=== PATIENT | male | born 1960 | race Two or more races ===

== ENCOUNTER 2023-06-02 19:14 | Emergency (ER) | payer OTHER ==
[~2023-06-02] VITALS: Ht 177.8 cm; Wt 79.6 kg
[2023-06-02 19:29] VITALS: BP 91/72; PULSE 111; RESP 18; TEMP 98
[2023-06-02 23:42] VITALS: O2SAT 98
[2023-06-02] MEDS ORDERED: IBUP1TAB5 PO (23:44)
== END 2023-06-03 05:21 | disposition home or self-care (01) ==
LOC: ER 19:18
DX: M79.604 Pain in right leg (principal); Z79.1 Long term (current) use of non-steroidal anti-inflammatories (NSAID)
CPT/HCPCS: 73590

== ENCOUNTER 2023-07-21 14:07 | Inpatient (IN) | payer OTHER ==
[~2023-07-21] VITALS: Ht 177.8 cm; Wt 91.0 kg
[~2023-07-21 14:07] MED LIST: IBUP1TAB5 PO
[2023-07-21] MEDS ORDERED: ASPirin-EC 81 mg tab PO ONE (14:45)
[2023-07-21] MEDS ORDERED: NITROGLYCERIN 2% OINT 1GM PKG TD ONE (14:45)
[2023-07-21 15:06] LABS: Basophils # (auto) 0.1 10 ^3/uL (0-0.2); Monocytes # (auto) 2.1 10 ^3/uL (0-1.3)
[2023-07-21 15:08] LABS: Basophils % (auto) 0.4 % (0.0-2.0); Eosinophils # (auto) 0.2 10 ^3/uL (0-0.8); Eosinophils % (auto) 0.7 % (0.0-7.0); Hematocrit 54.2 % (41.0-53.0); Hemoglobin 17.9 g/dL (13.5-17.5); Lymphocytes # (auto) 4.7 10 ^3/uL (0.4-5.4); Lymphocytes % (auto) 19.2 % (10.0-50.0); Mean Corpuscular Hemoglobin 30.5 pg (28.0-32.0); Mean Corpuscular Hgb Conc. 33.1 g/dL (32.0-36.0); Mean Corpuscular Volume 92.3 fL (80.0-100.0); Monocytes % (auto) 8.6 % (0.0-12.0); Neutrophils # (auto) 17.3 10 ^3/uL (1.6-8.6); Neutrophils % (auto) 71.1 % (37.0-80.0); Red Blood Cells 5.87 10^6/uL (4.5-5.90); Red Cell Distribution Width 14.4 % (11.8-14.3); White Blood Cell 24.4 10^3/uL (4.4-10.8)
[2023-07-21] MEDS ORDERED: VANCOMYCIN 1GM/250ML 250 ML IV ONE (15:45)
[2023-07-21] MEDS ORDERED: SODIUM CHLORIDE 0.9% 2,000 ML IV ONE (15:45)
[2023-07-21 15:49] LABS: Alanine Aminotransferase 68 U/L (7-40); Alkaline Phosphatase 88 U/L (46-116); Calcium 8.8 mg/dL (8.7-10.4)
[2023-07-21 15:50] LABS: Albumin 3.8 g/dL (3.2-4.8); Anion Gap 10 (5-15); Aspartate Aminotransferase 41 U/L (13-40); BUN/Creatinine Ratio 8.8 (10.0-20.0); Bilirubin, Total 0.9 mg/dL (0.2-1.0); Blood Urea Nitrogen 9 mg/dL (9-23); Carbon Dioxide 19 mmol/L (20-30); Chloride 104 mmol/L (98-107); Glucose 134 mg/dL (74-106); Lipase 46 U/L (12-53); Potassium 3.6 mmol/L (3.5-5.1); Sodium 133 mmol/L (136-145)
[2023-07-21] MEDS ORDERED: PIPERACILLIN-TAZO 4.5GM 100 ML IV ONE (16:00)
[2023-07-21 16:30] LABS: INR 1.09 (0.9-1.15); Prothrombin Time 11.4 sec (9.3-11.8)
[2023-07-21] MEDS ORDERED: NITROGLYCERIN 0.4 MG SL TAB SL PRN (16:30)
[2023-07-21] MEDS ORDERED: ENOXAPARIN SOD 100 MG/1 ML SYRINGE SC ONE (16:30)
[2023-07-21] MEDS ORDERED: ACETAMINOPHEN 325 MG TAB PO PRN (16:30)
[2023-07-21] MEDS ORDERED: VANCOMYCIN PER PHARMACY 0 MG IV SCH (16:30)
[2023-07-21 16:48] LABS: Lactic Acid w/Reflex 2.4 mmol/L (0.4-2.0)
[2023-07-21] MEDS: HYDROcodone-ACET 5/325MG TAB PO PRN ×2 (16:56→22:18)
[2023-07-21] MEDS: SODIUM CHLORIDE 0.9% 1,000 ML IV SCH (16:57)
[2023-07-21] MEDS ORDERED: IOHEXOL 350 MG/ML 100ML IJ ONE (16:58)
[2023-07-21 17:06] VITALS: PULSE 109; RESP 17; O2SAT 90
[2023-07-21 18:16] LABS: Triglycerides 62 mg/dL (< 150)
[2023-07-21 18:17] LABS: LDL Cholesterol 78 mg/dL (< 100)
[2023-07-21 18:18] LABS: Cholesterol 146 mg/dL (< 200); HDL Cholesterol 50 mg/dL (40-59)
[2023-07-21] MEDS ORDERED: MORPHINE SULFATE INJ 2 MG/ml SYRG IV PRN (19:00)
[2023-07-21] MEDS: MORPHINE SULFATE INJ 2 MG/ml SYRG IV PRN (19:11)
[2023-07-21 19:30] VITALS: PULSE 122; RESP 17; O2SAT 94
[2023-07-21] MEDS: PIPERACILLIN-TAZOB 3.375GM 100 ML IV SCH (22:18)
[2023-07-21] MEDS: ATORVASTATIN 20 MG TAB PO SCH (22:18)
[2023-07-21 22:28] LABS: Urine Bacteria NONE SEEN /hpf (None Seen); Urine Blood Negative /uL (Negative); Urine Clarity Clear (Clear); Urine Color Yellow (Yellow); Urine Protein, UAD TRACE (Negative); Urine Specific Gravity 1.044 (1.001-1.035); Urine WBC 1 /hpf (0 - 3)
[2023-07-21] MEDS ORDERED: KETOROLAC TROMETH 30 MG/ML 1ML VIAL IV ONE (22:30)
[2023-07-21 22:35] LABS: Amphetamine Screen, Urine Pos (NEGATIVE); Barbiturate Scree,Urine Neg (NEGATIVE); Benzodiazephine Screen, Urine Neg (NEGATIVE); Cannabinoid Screen, Urine Pos (NEGATIVE); Cocaine Screen, Urine Neg (NEGATIVE); Opiate Scree,Urine Pos (NEGATIVE); Phencyclidine Screen, Urine Neg (NEGATIVE)
[2023-07-21] MEDS ORDERED: CLINDAMYCIN 300MG IV 50 ML IV ONE (23:15)
[2023-07-21] MEDS ORDERED: HYDROmorphone HCL 2 MG/ML VL/or syr IV ONE (23:15)
[2023-07-21] MEDS ORDERED: CLINDAMYCIN 900MG IV 50 ML IV ONE (23:15)
[2023-07-21 23:43] LABS: INR 1.22 (0.9-1.15); Partial Thromboplastin Time 29.5 SEC (24.5-34.5); Prothrombin Time 12.6 sec (9.3-11.8)
[2023-07-22] VITALS (7 sets, daily range): BP systolic 99–111; BP diastolic 63–76; PULSE 67–115; RESP 17–22; TEMP 97.6–98.1; O2SAT 93–99
[2023-07-22 01:25] LABS: Chloride 103 mmol/L (98-107); Sodium 131 mmol/L (136-145)
[2023-07-22 01:26] LABS: Anion Gap 7 (5-15); Basophils # (auto) 0.1 10 ^3/uL (0-0.2); Calcium 7.5 mg/dL (8.7-10.4); Carbon Dioxide 21 mmol/L (20-30)
[2023-07-22 01:27] LABS: Basophils % (auto) 0.5 % (0.0-2.0); Eosinophils # (auto) 0.1 10 ^3/uL (0-0.8); Eosinophils % (auto) 0.4 % (0.0-7.0); Hematocrit 55.3 % (41.0-53.0); Hemoglobin 18.5 g/dL (13.5-17.5); Lymphocytes # (auto) 3.3 10 ^3/uL (0.4-5.4); Lymphocytes % (auto) 14.3 % (10.0-50.0); Mean Corpuscular Hemoglobin 30.6 pg (28.0-32.0); Mean Corpuscular Hgb Conc. 33.5 g/dL (32.0-36.0); Mean Corpuscular Volume 91.4 fL (80.0-100.0); Monocytes # (auto) 1.8 10 ^3/uL (0-1.3); Neutrophils # (auto) 17.7 10 ^3/uL (1.6-8.6); Neutrophils % (auto) 76.8 % (37.0-80.0); Red Blood Cells 6.05 10^6/uL (4.5-5.90); Red Cell Distribution Width 13.9 % (11.8-14.3)
[2023-07-22 01:31] LABS: Blood Urea Nitrogen 9 mg/dL (9-23); Glucose 144 mg/dL (74-106)
[2023-07-22] MEDS ORDERED: PROPOFOL 10 MG/ML 20 ML IV ONE (01:31)
[2023-07-22] MEDS ORDERED: fentaNYL CITRATE 100 MCG/2 ML VL ONE (01:31)
[2023-07-22] MEDS ORDERED: ONDANSETRON HCL 4 MG/2 ML VIAL ONE (01:45)
[2023-07-22] MEDS ORDERED: ePHEDrine SULFATE 50 MG/ML AMP ONE (01:45)
[2023-07-22] MEDS ORDERED: PHENYLEPHRINE HCL 10 MG/ML VL ONE (02:33)
[2023-07-22] MEDS ORDERED: MEPERIDINE HCL (25 MG/ML) 1ML VIAL IV PRN (03:00)
[2023-07-22] MEDS ORDERED: HYDROmorphone HCL 2 MG/ML VL/or syr IV PRN (03:00)
[2023-07-22] MEDS ORDERED: ONDANSETRON HCL 4 MG/2 ML VIAL IV PRN ×2 (03:00)
[2023-07-22] MEDS: VANCOMYCIN 750mg/250ml 250 ML IV SCH ×2 (04:17→17:22)
[2023-07-22] MEDS ORDERED: ENOXAPARIN SOD 100 MG/1 ML SYRINGE SC SCH (05:00)
[2023-07-22] MEDS: SODIUM CHLORIDE 0.9% 1,000 ML IV SCH ×2 (05:50→22:09)
[2023-07-22] MEDS: PIPERACILLIN-TAZOB 3.375GM 100 ML IV SCH ×2 (05:59→13:30)
[2023-07-22 09:29] LABS: Basophils # (auto) 0.1 10 ^3/uL (0-0.2); Basophils % (auto) 0.4 % (0.0-2.0); Hemoglobin 18.9 g/dL (13.5-17.5); Monocytes # (auto) 1.1 10 ^3/uL (0-1.3); Red Cell Distribution Width 14.1 % (11.8-14.3)
[2023-07-22 09:31] LABS: Eosinophils # (auto) 0.1 10 ^3/uL (0-0.8); Eosinophils % (auto) 0.7 % (0.0-7.0); Hematocrit 54.9 % (41.0-53.0); Lymphocytes # (auto) 2.8 10 ^3/uL (0.4-5.4); Lymphocytes % (auto) 13.2 % (10.0-50.0); Mean Corpuscular Hemoglobin 31.1 pg (28.0-32.0); Mean Corpuscular Hgb Conc. 34.4 g/dL (32.0-36.0); Mean Corpuscular Volume 90.5 fL (80.0-100.0); Monocytes % (auto) 5.4 % (0.0-12.0); Neutrophils # (auto) 17.2 10 ^3/uL (1.6-8.6); Neutrophils % (auto) 80.3 % (37.0-80.0); Nucleated Red Blood Cells % 0.2 %; Red Blood Cells 6.07 10^6/uL (4.5-5.90); White Blood Cell 21.4 10^3/uL (4.4-10.8)
[2023-07-22 09:57] LABS: Alanine Aminotransferase 42 U/L (7-40); Albumin 2.6 g/dL (3.2-4.8); Alkaline Phosphatase 56 U/L (46-116); Anion Gap 5 (5-15); Aspartate Aminotransferase 35 U/L (13-40); BUN/Creatinine Ratio 9.6 (10.0-20.0); Blood Urea Nitrogen 8 mg/dL (9-23); Calcium 7.4 mg/dL (8.5-10.1); Carbon Dioxide 22 mmol/L (20-30); Chloride 103 mmol/L (98-107); Sodium 130 mmol/L (136-145)
[2023-07-22 09:58] LABS: Bilirubin, Total 0.8 mg/dL (0.2-1.0); Total Protein 4.8 g/dL (5.7-8.2)
[2023-07-22] MEDS ORDERED: ASPirin 81 mg TAB PO SCH (10:00)
[2023-07-22 10:06] LABS: Glucose 251 mg/dL (74-106)
[2023-07-22] MEDS: MORPHINE SULFATE INJ 2 MG/ml SYRG IV PRN ×2 (13:30→17:21)
[2023-07-22] MEDS ORDERED: FLEET ENEMA(ADULT) 135 ML PR ONE (18:00)
[2023-07-22] MEDS ORDERED: MORPHINE SULFATE INJ 2 MG/ml SYRG IV ONE (18:00)
[2023-07-22] MEDS: ATORVASTATIN 20 MG TAB PO SCH (21:56)
[2023-07-22] MEDS: MEROPENEM 1GM IVPB 100 ML IV SCH (22:13)
[2023-07-23] MEDS: ACETAMINOPHEN/CODEINE#3 (300/30mg) TAB PO PRN ×2 (00:59→06:32)
[2023-07-23] MEDS: VANCOMYCIN 750mg/250ml 250 ML IV SCH (04:51)
[2023-07-23 05:00] VITALS: BP 113/70; PULSE 105; RESP 20; TEMP 97.8; O2SAT 97
[2023-07-23] MEDS: MEROPENEM 1GM IVPB 100 ML IV SCH (06:00)
[2023-07-23 08:00] VITALS: PULSE 78; RESP 22
[2023-07-23] MEDS ORDERED: ALPRAZolam 0.5 MG TAB PO ONE (08:00)
[2023-07-23 08:55] VITALS: BP 124/89; PULSE 99; RESP 19; O2SAT 95
[2023-07-23] MEDS ORDERED: ASPirin 81 mg TAB PO SCH (10:00)
[2023-07-23] MEDS: SODIUM CHLORIDE 0.9% 1,000 ML IV SCH (10:19)
[2023-07-23 10:23] VITALS: BP 122/88
[2023-07-23] MEDS: MORPHINE SULFATE INJ 2 MG/ml SYRG IV PRN (10:23)
[2023-07-23] MEDS ORDERED: HYDROmorphone HCL 2 MG/ML VL/or syr IV ONE (10:30)
[2023-07-23] MEDS ORDERED: IOHEXOL 300 MG/ML 100ML BOTTLE IJ ONE (11:11)
[2023-07-23 12:45] VITALS: PULSE 47; RESP 17
[2023-07-23] MEDS ORDERED: NOREPINEPHRINE 8 MG/250ML KIT 250 ML IV ONE (13:15)
[2023-07-23] MEDS ORDERED: EPINEPHrine HCL 250 ML IV ONE (13:32)
[2023-07-23 13:36] LABS: Mean Corpuscular Hemoglobin 30.8 pg (28.0-32.0); Mean Corpuscular Hgb Conc. 31.6 g/dL (32.0-36.0); Mean Corpuscular Volume 97.5 fL (80.0-100.0); Red Blood Cells 7.04 10^6/uL (4.5-5.90); Red Cell Distribution Width 15.5 % (11.8-14.3); White Blood Cell 28.9 10^3/uL (4.4-10.8)
[2023-07-23 13:58] LABS: Hematocrit 68.7 % (41.0-53.0)
[2023-07-23 14:04] LABS: Hemoglobin 21.7 g/dL (13.5-17.5)
[2023-07-23 14:06] LABS: Basophils % (manual) 0 (0.0-2.0); Blast Cells 0; Myelocytes % 0; Promyelocytes % 0; Reactive Lymphocytes 0
[2023-07-23 14:07] LABS: Alanine Aminotransferase 558 U/L (7-40); Albumin 2.8 g/dL (3.2-4.8); Alkaline Phosphatase 94 U/L (46-116); Aspartate Aminotransferase 901 U/L (13-40); Bilirubin, Total 0.9 mg/dL (0.2-1.0); Blood Urea Nitrogen 35 mg/dL (9-23); Calcium 9.1 mg/dL (8.5-10.1); Chloride 95 mmol/L (98-107); Glucose 141 mg/dL (74-106); Potassium 5.2 mmol/L (3.5-5.1); Sodium 132 mmol/L (136-145); Total Protein 4.8 g/dL (5.7-8.2)
[2023-07-23 14:18] LABS: Anion Gap 27.00001 (5-15); Carbon Dioxide < 10 mmol/L (20-30)
[2023-07-23 14:50] LABS: Band Neutrophils % (manual) 8; Eosinophils % (manual) 1 (0-7); Lymphocytes % (manual) 4 (10.0-50.0); Metamyelocytes % 11; Monocytes % (manual) 7 (0-12); Platelet Estimate Adequate
== END 2023-07-23 14:12 | DRG 710 ==
LOC: ER 14:07 → TELE 16:32 → TELE-WESTW 07-22 03:55 → WEST WING 07-22 14:42
PROVIDERS: ADMIT Nurse Practitioner Family; ATTEND Internal Medicine
PROC: 0JBG0ZZ Excision of Right Lower Arm Subcutaneous Tissue and Fascia, Open Approach (ICD-10-PCS; 2023-07-22)
PROC: 0KN90ZZ Release Right Lower Arm and Wrist Muscle, Open Approach (ICD-10-PCS; principal; 2023-07-22 01:34)
PROC: 5A12012 Performance of Cardiac Output, Single, Manual (ICD-10-PCS; 2023-07-23)
PROC: 05HY33Z Insertion of Infusion Device into Upper Vein, Percutaneous Approach (ICD-10-PCS; 2023-07-23)
DX: A41.9 Sepsis, unspecified organism (principal); J96.00 Acute respiratory failure, unspecified whether with hypoxia or hypercapnia; I46.9 Cardiac arrest, cause unspecified; R65.21 Severe sepsis with septic shock; M72.6 Necrotizing fasciitis; L03.113 Cellulitis of right upper limb; I80.8 Phlebitis and thrombophlebitis of other sites; E66.01 Morbid (severe) obesity due to excess calories; Z51.5 Encounter for palliative care; Z66 Do not resuscitate; I45.2 Bifascicular block; I25.10 Atherosclerotic heart disease of native coronary artery without angina pectoris; E78.5 Hyperlipidemia, unspecified; F17.210 Nicotine dependence, cigarettes, uncomplicated; F19.90 Other psychoactive substance use, unspecified, uncomplicated; I10 Essential (primary) hypertension; Z71.6 Tobacco abuse counseling; I25.2 Old myocardial infarction; Z79.899 Other long term (current) drug therapy; Z86.718 Personal history of other venous thrombosis and embolism; Z91.199 Patient's noncompliance with other medical treatment and regimen due to unspecified reason; Z68.28 Body mass index [BMI] 28.0-28.9, adult; Z53.20 Procedure and treatment not carried out because of patient's decision for unspecified reasons
CPT/HCPCS: 36415; 36600; 71045; 71275; 73200; 80048; 80053; 80061; 80202; 80307; 81001; 82306; 82805; 83036; 83605; 83690; 83735; 83880; 84443; 84484; 85007; 85025; 85027; 85379; 85610; 85730; 86703; 86704; 86706; 86708; 86803; 86850; 86900; 86901; 87040; 87070; 87075; 87205; 87340; 92950; 93005; 93306; 93971; 94002; 96365; 96366; 96367; 96368; 96372; 96375; 96376; 99291; G0378; J0171; J1885; J2185; J2405; J2543; J2704; J3490